=== PATIENT | female | born 1965 | race Caucasian/White ===

== ENCOUNTER 2018-08-22 15:00 | Emergency (ER) | payer OTHER ==
[2018-08-22] MEDS ORDERED: diPHENhydraMINE IV* 50 MG/ML 1 ml VIAL (BENADRYL) IM ONE (15:08)
[2018-08-22] MEDS ORDERED: EPINEPHRINE 1 MG/ML 1 ML VIAL IM ONE (15:11)
[2018-08-22] MEDS ORDERED: Famotidine TAB* 20 MG PO ONE (15:12)
--- NOTE | 2018-08-22 15:25 | UC ---
Allergic Reaction HPI - HPI Summary HPI Summary: Patient was taking a cephalosporin for her UTI. she has had anaphylacitc reaction to ABX in the past. she feels like her throat is slightly swollen, and thought she saw a hive on the back of her throat. her VS are stable, she is not SOB at this time. - History of Current Complaint Chief Complaint: UCAllergicReaction Stated Complaint: POSS ALLERGIC REACTION Time Seen by Provider: 08/22/18 15:08 Hx Obtained From: Patient Onset/Duration: Sudden Onset, Lasting Hours Severity Initially: Mild Severity Currently: Mild Pain Intensity: 2 Aggravating Factor(s): Nothing Alleviating Factor(s): Nothing Associated Signs And Symptoms: Positive: Other: - throat feels swollen - Related Hx Possible Reaction To: Medications - Allergies/Home Medications Allergies/Adverse Reactions: Allergies Allergy/AdvReac Type Severity Reaction Status Date / Time Cephalosporins Allergy Hives Verified 08/22/18 15:15 ciprofloxacin [From Cipro] Allergy Hives Verified 08/22/18 15:15 nitrofurantoin Allergy Difficulty Verified 08/22/18 15:15 Breathing Penicillins Allergy Hives Verified 08/22/18 15:15 Sulfa (Sulfonamide Allergy Hives Verified 08/22/18 15:15 Antibiotics) Home Medications: Home Medications ceFUROXime TAB(*) [Ceftin TAB 250 MG(*)] 500 mg PO BID 08/22/18 [History Confirmed 08/22/18] PMH/Surg Hx/FS Hx/Imm Hx Previously Healthy: Yes GI/ History: Other - UTI - Surgical History Surgical History: Yes Surgery Procedure, Year, and Place: . appy - Family History Known Family History: Negative: Cardiac Disease, Hypertension - Social History Alcohol Use: None Substance Use Type: None Smoking Status (MU): Never Smoked Tobacco Review of Systems All Other Systems Reviewed And Are Negative: Yes Constitutional: Positive: Negative Skin: Positive: Negative Eyes: Positive: Negative ENT: Positive: Sore Throat Respiratory: Positive: Negative Cardiovascular: Positive: Negative Gastrointestinal: Positive: Negative Genitourinary: Positive: Negative Motor: Positive: Negative Neurovascular: Positive: Negative Musculoskeletal: Positive: Negative Neurological: Positive: Negative Psychological: Positive: Negative Is Patient Immunocompromised?: No Physical Exam Triage Information Reviewed: Yes Appearance: Well-Appearing, Well-Nourished, Pain Distress Vital Signs: Initial Vital Signs Temp 97.9 F 08/22/18 15:05 Pulse 95 08/22/18 15:05 Resp 17 08/22/18 15:05 BP 137/94 08/22/18 15:05 Pulse Ox 99 08/22/18 15:05 Vital Signs Reviewed: Yes Eye Exam: Normal ENT: Positive: Pharyngeal erythema - and swelling Dental Exam: Normal Neck exam: Normal Respiratory Exam: Normal Respiratory: Positive: Chest non-tender, Lungs clear, Normal breath sounds Cardiovascular Exam: Normal Cardiovascular: Positive: RRR, No Murmur, Pulses Normal Abdominal Exam: Normal Bowel Sounds: Positive: Present Musculoskeletal Exam: Normal Neurological Exam: Normal Psychological Exam: Normal Skin Exam: Normal Re-Evaluation - Re-Evaluation First Eval Change: Improved - patient is shaking after epi, throat and ears are no longer itching. breathing and vs are stable Allergic Reaction Course/Dx - Course Course Of Treatment: hx obtained, exam performed ,meds reviewed, treated for possible anaphylaxis - Differential Dx/Diagnosis Differential Diagnosis/HQI/PQRI: Anaphylaxis, Urticaria, Other - allergic reaction to ABX Provider Diagnosis: Allergic reaction caused by a drug - Physician Notification/Consults Discussed Patient Care With: Malika Swenson Instructed by Provider To: MD Will See In ED Discharge - Sign-Out/Discharge Documenting (check all that apply): Patient Departure All imaging exams completed and their final reports reviewed: No Studies - Discharge Plan Condition: Stable Disposition: TRANS HIGHER LVL OF CARE FAC Referrals: Bryant Shaw DO [Medical Doctor] - - Billing Disposition and Condition Condition: STABLE Disposition: Trans Higher Lvl of Care Fac - Attestation Statements Provider Attestation: I was available for consult. This patient was seen by the [facility]. The patient was not presented to, seen by, or examined by me. -Leni
[2018-08-22 15:49] VITALS: BP 129/72
== END 2018-08-22 15:49 | disposition short-term general hospital (02) ==
LOC: UCCORT 15:00
DX: J02.9 Acute pharyngitis, unspecified (principal); T36.1X5A Adverse effect of cephalosporins and other beta-lactam antibiotics, initial encounter; Y92.019 Unspecified place in single-family (private) house as the place of occurrence of the external cause; X58.XXXA Exposure to other specified factors, initial encounter; N39.0 Urinary tract infection, site not specified; Z88.0 Allergy status to penicillin; Z88.2 Allergy status to sulfonamides; Z88.8 Allergy status to other drugs, medicaments and biological substances
CPT/HCPCS: 96372; 99213; A9270-GY; G0463; J1200